=== PATIENT | female | born 1950 | race Caucasian/White ===

== ENCOUNTER 2017-05-01 11:01 | Outpatient (CLI) | payer MEDICARE, OTHER ==
--- NOTE | 2017-05-05 15:25 | Mammography Report ---
DIGITAL SCREENING MAMMOGRAM: 05/01/2017 CLINICAL INDICATION: A 66-year-old with history of benign biopsy, for screening. COMPARISON: Films from [place], [place] dated 01/07/2014, 09/16/2012, 10/18/2011, 01/04/2011. TECHNIQUE: Routine CC and MLO projections were obtained of the breasts. FINDINGS: Scattered fibroglandular tissue is present within the breasts. There are no dominant chuck s, suspicious microcalcifications, or secondary signs of malignancy. In comparison to the previous st udies, there are no significant changes. ASSESSMENT: NO MAMMOGRAPHIC EVIDENCE OF MALIGNANCY. NO SIGNIFICANT INTERVAL CHANGES. RECOMMENDATION: Screening mammography is recommended annually. BIRADS category 1 - negative. STANDARD QUALIFYING STATEMENTS 1. This examination was reviewed with the aid of Computed-Aided Detection (CAD). 2. A negative or benign imaging report should not delay biopsy if clinically suspicious findings are present. Consider surgical consultation if warranted. More than 5% of cancers are not identified by i maging. 3. Dense breasts may obscure an underlying neoplasm. JOB #: [id number] EXT JOB #:[id number]
== END 2017-05-01 11:02 | disposition home or self-care (01) ==
LOC: DI.N 11:01
PROVIDERS: ATTEND Internal Medicine
DX: Z12.31 Encounter for screening mammogram for malignant neoplasm of breast (principal)
CPT/HCPCS: 77067

== ENCOUNTER 2018-11-19 13:56 | Outpatient (CLI) | payer MEDICARE, OTHER ==
--- NOTE | 2018-11-20 14:28 | XRAY Report ---
Reason: RED SWOLLEN MCP JOINT ATTN TO THUMB Procedure Date: 11/19/2018 Accession Number: [id number] / [id number] Procedure: XRN - Hand 3 View BILAT CPT Code: FULL RESULT: EXAM: BILATERAL HAND RADIOGRAPHY EXAM DATE: 11/19/2018 02:17 PM. CLINICAL HISTORY: RED SWOLLEN MCP JOINT ATTN TO THUMB. Pain. COMPARISON: None. TECHNIQUE: Each hand, 3 views. FINDINGS: Bones: No definite fracture or other bone lesion. Joints: Severe degenerative changes in the first CMC joints, right slightly worse than left, with moderate subluxation. Minimal degenerative changes distally. Unremarkable MCP joints. No erosions. Soft Tissues: Soft tissue swelling. IMPRESSION: Severe first CMC joint degenerative disease. RADIA
== END 2018-11-19 13:57 | disposition home or self-care (01) ==
LOC: DI.N 13:56
PROVIDERS: ATTEND Internal Medicine
DX: M18.0 Bilateral primary osteoarthritis of first carpometacarpal joints (principal)

== ENCOUNTER 2019-04-26 10:48 | Outpatient (CLI) | payer MEDICARE, OTHER | END 2019-04-26 10:49 | disposition EMS.NT | LOC: EMS 10:48 | PROVIDERS: ATTEND Surgery | DX: R04.0 Epistaxis (principal) ==

== ENCOUNTER 2019-05-17 23:13 | Outpatient (CLI) | payer MEDICARE, OTHER | END 2019-05-17 23:14 | disposition critical access hospital (66) | LOC: EMS 23:13 | PROVIDERS: ATTEND Surgery | DX: R04.0 Epistaxis (principal) | CPT/HCPCS: A0425; A0429 ==

== ENCOUNTER 2019-05-17 23:31 | Emergency (ER) | payer MEDICARE, OTHER ==
--- NOTE | 2019-05-18 00:11 | ED Physician Documentation ---
PD MYCHAL GARCIA - Stated complaint Stated Complaint: Epistaxis - Chief complaint Chief Complaint: General - History obtained from History obtained from: Patient - History of Present Illness Timing - onset: Today Timing - duration: Hours (2) Timing - details: Abrupt onset Location: Nose Associated symptoms: No: Congestion, Rhinorrhea Recently seen: Not recently seen - Additional information Additional information: Is a 68-year-old woman who presents with complaints of a nosebleed in her left nostril that did not stop after applying pressure and even having the ambulance come and applied pressure. She had her first nosebleed ever from the same nostril 2 or 3 weeks ago but she was able to get it stopped and did not have to come in. She denies any stuffy nose and has not been using sprays nasal sprays. There is been no trauma. She is not on a blood thinner. Review of Systems Constitutional: denies: Fever Nose: reports: Epistaxis. denies: Congestion Immunocompromised: reports: Other (She is not on blood thinners) PD PAST MEDICAL HISTORY - Past Medical History Past Medical History: Yes Cardiovascular: Hypertension, [place] Respiratory: None Endocrine/Autoimmune: None GI: Ulcerative colitis FITTER MECHANIC: None Musculoskeletal: Fibromyalgia Derm: None - Past Surgical History /FITTER MECHANIC: Hysterectomy - Present Medications Home Medications: Ambulatory Orders Medication Instructions Recorded Confirmed Acetaminophen [Tylenol Extra 1,000 mg PO DAILY PM 05/18/19 05/18/19 Strength] Budesonide [Budesonide EC] 3 mg PO DAILY 05/18/19 05/18/19 Nortriptyline [Pamelor] 25 mg PO HS 05/18/19 05/18/19 RX: Amoxicillin 250 mg PO TID 10 Days #1 bottle 05/18/19 RX: Amoxicillin 250 mg PO TID 5 Days #1 bottle 05/18/19 RX: Aspirin 325 mg PO DAILY PM 05/18/19 05/18/19 RX: Ibuprofen 800 mg PO DAILY 05/18/19 05/18/19 RX: Metoprolol Succinate 50 mg PO DAILY PM 05/18/19 05/18/19 RX: Sertraline HCl 100 mg PO DAILY PM 05/18/19 05/18/19 RX: hydroCHLOROthiazide 25 mg PO DAILY 05/18/19 05/18/19 [Hydrochlorothiazide] - Allergies Allergies/Adverse Reactions: Allergies Allergy/AdvReac Type Severity Reaction Status Date / Time sumatriptan [From Imitrex] Allergy Severe Unknown Verified 05/17/19 23:40 codeine Allergy Itching Verified 05/17/19 23:40 erythromycin base Allergy Nausea Verified 05/17/19 23:40 morphine Allergy Itching Verified 05/17/19 23:40 - Social History Does the pt smoke?: No Smoking Status: Former smoker Does the pt drink ETOH?: Yes ETOH Use: Wine Does the pt have substance abuse?: No - Immunizations Immunizations are current?: No - POLST Patient has POLST: No PD ED PE NORMAL - Vitals Vital signs reviewed: Yes - General General: Alert and oriented X 3, No acute distress, Well developed/nourished - HEENT HEENT: Atraumatic, PERRL, Moist mucous membranes, Other (There is no active bleeding. I cannot identify any source of the bleeding on the anterior septum. There is some dried blood in her posterior pharynx.) - Respiratory Respiratory: No respiratory distress Results - Vitals Vitals: Vital Signs - 24 hr 05/17/19 05/17/19 05/18/19 23:40 23:48 01:05 Temperature 36.2 C L Heart Rate 85 79 79 Respiratory 20 18 16 Rate Blood Pressure 159/83 H 144/87 H 146/78 H O2 Saturation 97 97 97 Oxygen O2 Source Room air Procedures - Epistaxis Site: Right Treatment: Other (Rapid Rhino) Other: Pt tolerated well, Antibiotics prescribed PD MEDICAL DECISION MAKING - ED course ED course: I could not identify a definitive source of the bleeding and elected to put a rapid Rhino and since this is her set get an episode of epistaxis in the past couple of weeks. She is referred back to her primary care provider for removal of the packing in 2 days or return to the emergency department if needed. Consider referral to ENT. Departure - Departure Disposition: 01 Home, Self Care Clinical Impression: Epistaxis Condition: Good Instructions: ED Nasal Packing Anterior Removable Prescriptions: RX: Amoxicillin 250 mg PO TID 10 Days #1 bottle RX: Amoxicillin 250 mg PO TID 5 Days #1 bottle Comments: Take the amoxicillin as prescribed while the packing is in place. Follow-up with your primary care provider or ENT to remove the packing. Return if you have bleeding down the back of your throat or blood out of the nostril with packing in place. Tylenol if needed for pain. Discharge Date/Time: 05/18/19 01:21
[2019-05-18] MEDS ORDERED: AMOXICILLIN 250 MG CAPSULE PO STA (00:51)
[2019-05-18 01:06] VITALS: BP 146/78
== END 2019-05-18 01:21 | disposition home or self-care (01) ==
LOC: EDUNIT# → EDBD → ED 23:31
DX: R04.0 Epistaxis (principal); I10 Essential (primary) hypertension; Z79.82 Long term (current) use of aspirin; Z87.891 Personal history of nicotine dependence
CPT/HCPCS: 30901; 99283; A9270

== ENCOUNTER 2020-06-13 13:26 | Outpatient (CLI) | payer MEDICARE, OTHER ==
--- NOTE | 2020-06-14 10:01 | Mammography Report ---
BILATERAL DIGITAL SCREENING MAMMOGRAM 3D/2D: 06/13/2020 CLINICAL: Routine screening. Comparison is made to exams dated: 05/01/2017 mammogram - [facility] and 01/07/2014 m ammogram - [place]. There are scattered fibroglandular elements in both breasts. There are grouped calcifications in the left breast at 12 o'clock middle depth. No other significant masses, calcifications, or other findings are seen in either breast. IMPRESSION: INCOMPLETE: NEEDS ADDITIONAL IMAGING EVALUATION The grouped calcifications in the left breast are indeterminate. A spot compression view is recommen ded. This exam was interpreted at Station ID: [id number]. NOTE: For mammograms, a report in lay terms will be sent to the patient. Approximately 15% of breast malignancies will not be visualized mammographically. In the management of a palpable breast mass, a negative mammogram must not discourage biopsy of a clinically suspicious lesion. Electronically Signed By: Mimi Fuller M.D. lk/:06/13/2020 15:12:03 ACR BI-RADS Category 0: Incomplete 3340F PARENCHYMAL PATTERN: (A) - The breast(s) demonstrate(s) scattered fibroglandular densities. BI-RADS CATEGORY: (0) - 0 RECOMMENDATION: (ADDMAM) - Recommend additional mammographic views. [id number] Immediate follow-up LATERALITY: (B)
== END 2020-06-13 13:27 | disposition home or self-care (01) ==
LOC: DI.N 13:26
PROVIDERS: ATTEND Internal Medicine
DX: Z12.31 Encounter for screening mammogram for malignant neoplasm of breast (principal); R92.8 Other abnormal and inconclusive findings on diagnostic imaging of breast
CPT/HCPCS: 77063; 77067

== ENCOUNTER 2020-06-15 14:40 | Outpatient (CLI) | payer MEDICARE, OTHER ==
--- NOTE | 2020-06-15 16:53 | DEXA Report ---
PROCEDURE: Dexa Spine and/or Hip INDICATIONS: POST MENOPAUSAL TECHNIQUE: Dual energy x-ray absorptiometry (DXA) was performed on a [employer] System. Regions measur ed are the AP Spine, femoral neck, and if needed forearm. COMPARISON: None. FINDINGS: Lumbar Spine: Bone Mineral Density 1.289 g/cm/cm,T score 0.9, normal Left Hip: Bone Mineral Density 1.064 g/cm/cm,T score 0.4, normal Left Femoral Neck: Bone Mineral Density 0.938 g/cm/cm, T score -0.7, normal (T score greater or equal to -1.0: NORMAL) (T score from -1.1 to -2.4: OSTEOPENIA) (T score less than or equal to -2.5 to: OSTEOPOROSIS) Impression: Normal bone density. Patients with diagnosis of osteoporosis or osteopenia should have regular bone mineral density assess ment. For those eligible for Medicare, routine testing is allowed once every 2 years. Testing frequ ency can be increased for patients who have rapidly progressing disease or for those who are receivin g medical therapy to restore bone mass. Reviewed by: Cristel Butcher MD, PhD on 06/15/2020 4:52 PM PDT Approved by: Cristel Butcher MD, PhD on 06/15/2020 4:52 PM PDT Station ID: [id number]
== END 2020-06-15 14:41 | disposition home or self-care (01) ==
LOC: DI 14:40
PROVIDERS: ATTEND Internal Medicine
DX: Z13.820 Encounter for screening for osteoporosis (principal); Z78.0 Asymptomatic menopausal state; N95.8 Other specified menopausal and perimenopausal disorders
CPT/HCPCS: 77080

== ENCOUNTER 2020-07-04 14:11 | Outpatient (CLI) | payer MEDICARE, OTHER ==
--- NOTE | 2020-07-05 14:57 | Mammography Report ---
UNILATERAL LEFT DIGITAL DIAGNOSTIC MAMMOGRAM 3D/2D: 07/04/2020 CLINICAL: Patient returns for magnifcation views of microcalcifications in the left breast. Comparison is made to exams dated: 05/01/2017 mammogram, 06/13/2020 mammogram - [facility], and 01/07/2014 mammogram - [place]. There are scattered fibroglandular elements in left breast. There is a new 3 mm area of grouped fine heterogeneous calcifications in the left breast at 12 o'cloc k middle depth 7.5 cm from the nipple. These are seen in additional views. No other significant masses or calcifications are seen in the breast. IMPRESSION: SUSPICIOUS OF MALIGNANCY The new 3 mm area of grouped fine heterogeneous calcifications in the left breast are at a low suspic ion for malignancy. A stereotactic biopsy is recommended. Findings and recommendations were discuss ed with the patient by the onsite radiologist, Dr. García, at the time of the exam. This exam was interpreted at Station ID: [id number]. NOTE: For mammograms, a report in lay terms will be sent to the patient. Approximately 15% of breast malignancies will not be visualized mammographically. In the management of a palpable breast mass, a negative mammogram must not discourage biopsy of a clinically suspicious lesion. Electronically Signed By: Sukhi saunders/melba:07/04/2020 16:46:26 ACR BI-RADS Category 4a: Suspicious abnormality - low suspicion for malignancy 3344F PARENCHYMAL PATTERN: (A) - The breast(s) demonstrate(s) scattered fibroglandular densities. BI-RADS CATEGORY: (4a) - Low Susp None [id number] Immediate follow-up LATERALITY: ()
== END 2020-07-04 14:12 | disposition home or self-care (01) ==
LOC: DI 14:11
PROVIDERS: ATTEND Internal Medicine
DX: R92.8 Other abnormal and inconclusive findings on diagnostic imaging of breast (principal)

== ENCOUNTER 2020-07-19 10:36 | Outpatient (CLI) | payer MEDICARE, OTHER ==
[~2020-07-19 10:36] MED LIST: BUFFERED LIDOCAINE 10 ML SYRINGE ONE; LIDOCAINE 1%-EPI 1:100000 20 ML MDV ONE
[2020-07-19] MEDS ORDERED: LIDOCAINE 1%-EPI 1:100000 20 ML MDV SUBQ ONE (12:07)
[2020-07-19] MEDS ORDERED: BUFFERED LIDOCAINE 10 ML SYRINGE IU ONE (12:08)
--- NOTE | 2020-07-24 07:06 | Mammography Report ---
DIGITAL TOMOGRAPHIC MAMMOGRAPHY GUIDED STEREOTACTIC GUIDED BIOPSY LEFT BREAST WITH MARKING DEVICE INS ERTED AND POST MAMMOGRAPHIC IMAGING AND RADIOGRAPHIC SPECIMEN IMAGIN07/19/2020 CLINICAL: Diffuse right breast pain. Correlation is made to exams dated: 07/04/2020 mammogram, 06/13/2020 mammogram, 05/01/2017 mammogram - [facility], 01/07/2014 mammogram, 11/17/2011 ultrasound, and 11/17/2011 mammogram [place]. A stereotactic guided biopsy was performed for the 3 mm area of grouped and linear fine calcification s located in the left breast at 12 o'clock middle depth 7.5 cm from the nipple. This was described o n the previous mammography report. The skin was prepped in the usual manner. Local anesthetic was a dministered to the access site. A small incision was made in the breast. The abnormality was approa ched from the craniocaudal aspect using an upright digital tomographic mammography unit. A 9 gauge b iopsy needle was placed adjacent to the abnormality under computer guidance and confirmatory stereota ctic mammography images were obtained to document needle placement. Once the needle was documented t o be in the correct location, a specimen was obtained using an automated biopsy gun. A clip was inse rted into the biopsy cavity. A skin closure strip and a sterile dressing were applied to the access site. Post procedure mammographic imaging demonstrates the location device at the targeted area. Th e specimen was sent to the laboratory for pathological analysis. IMPRESSION: STEREOTACTIC GUIDED BIOPSY BENIGN Stereotactic guided biopsy of the 3 mm area of grouped and linear fine calcifications in the left jacob ast at 12 o'clock middle depth 7.5 cm from the nipple was successful. The imaged specimen includes t he calcifications. Pathology indicates benign fatty breast tissue with micro-calcifications present. Pathology results are concordant with imaging findings. Return to annual mammogram screening schedule is recommended. This exam was interpreted at Station ID: [id number]. Skip Can M.D. ,aty/:07/21/2020 18:22:31 BI-RADS CATEGORY: () - Mammogram [id number] return to screening LATERALITY: (B)
== END 2020-07-19 10:37 | disposition home or self-care (01) ==
LOC: DI 10:36
PROVIDERS: ATTEND Internal Medicine
DX: R92.8 Other abnormal and inconclusive findings on diagnostic imaging of breast (principal); R92.0 Mammographic microcalcification found on diagnostic imaging of breast
CPT/HCPCS: 19081

== ENCOUNTER 2021-01-12 12:25 | Outpatient (CLI) | payer MEDICARE, OTHER ==
--- NOTE | 2021-01-12 12:52 | XRAY Report ---
PROCEDURE: Chest 2 View X-Ray INDICATIONS: COUGH TECHNIQUE: 2 view(s) of the chest. COMPARISON: None. FINDINGS: Surgical changes and devices: None. Lungs and pleura: No pleural effusions or pneumothorax. Lungs are clear. Mediastinum: Mediastinal contours are normal. Heart size is normal. Bones and chest wall: No suspicious bony abnormalities. Soft tissues appear unremarkable. IMPRESSION: No acute cardiopulmonary disease process. Reviewed by: Cristel Butcher MD, PhD on 01/12/2021 12:51 PM PDT Approved by: Cristel Butcher MD, PhD on 01/12/2021 12:51 PM PDT Station ID: [id number]
[2021-01-12 13:05] LABS: BASOPHILS # (AUTO) 0.1 10^3/uL (0.0-0.1); BASOPHILS % (AUTO) 0.7 %; EOSINOPHILS # (AUTO) 0.3 10^3/uL (0.0-0.7); EOSINOPHILS % (AUTO) 2.1 %; HCT - HEMATOCRIT 39.8 % (37.0-47.0); HGB - HEMOGLOBIN 13.2 g/dL (12.0-16.0); LYMPHOCYTES # (AUTO) 1.2 10^3/uL (1.5-3.5); LYMPHOCYTES % (AUTO) 9.1 %; MEAN CORPUSCULAR HEMOGLOBIN 31.2 pg (27.0-31.0); MEAN CORPUSCULAR HGB CONC 33.2 g/dL (32.0-36.0); MEAN CORPUSCULAR VOLUME 94.1 fL (81.0-99.0); MEAN PLATELET VOLUME 9.1 fL (7.9-10.8); MONOCYTES # (AUTO) 0.6 10^3/uL (0.0-1.0); MONOCYTES % (AUTO) 4.5 %; NEUTROPHILS # (AUTO) 10.7 10^3/uL (1.5-6.6); NEUTROPHILS % (AUTO) 82.1 %; PLT - PLATELET COUNT 229 10^3/uL (130-450); RED BLOOD COUNT 4.23 10^6/uL (4.20-5.40); RED CELL DISTRIBUTION WIDTH 13.4 % (12.0-15.0); WHITE BLOOD COUNT 13.1 x10^3/uL (4.8-10.8)
== END 2021-01-12 12:26 | disposition home or self-care (01) ==
LOC: DI 12:25
PROVIDERS: ATTEND Internal Medicine
DX: R05 Cough (principal); R06.00 Dyspnea, unspecified; I42.9 Cardiomyopathy, unspecified
CPT/HCPCS: 36415; 83880; 85025

== ENCOUNTER 2021-01-12 12:36 | Outpatient (CLI) | payer MEDICARE, OTHER | END 2021-01-12 12:37 | disposition home or self-care (01) | LOC: LAB 12:36 | PROVIDERS: ATTEND Internal Medicine | DX: Z53.9 Procedure and treatment not carried out, unspecified reason (principal); I42.9 Cardiomyopathy, unspecified; R06.00 Dyspnea, unspecified ==

== ENCOUNTER 2021-01-19 15:31 | Outpatient (CLI) | payer MEDICARE, OTHER ==
[2021-01-19] MEDS ORDERED: IOPAMIDOL-300 100 ML VIAL ONE (16:01)
[2021-01-19 16:17] LABS: CREATININE 0.8 mg/dL (0.4-1.0)
[2021-01-19] MEDS ORDERED: IOPAMIDOL-300 100 ML VIAL IVP ONE (17:34)
--- NOTE | 2021-01-19 18:05 | CT Report ---
PROCEDURE: ANGIO CHEST W/WO INDICATIONS: DYSPNEA, HYPOXIA CONTRAST: IV CONTRAST: Isovue 300 ml: 80 PO CONTRAST: *NO PO CONTRAST TECHNIQUE: After the administration of intravenous contrast, 2 mm thick sections acquired from the pulmonary api miguel to the posterior costophrenic angles. 3-dimensional maximum intensity projection (MIP) coronal a nd sagittal reformats were then acquired through the thorax. For radiation dose reduction, the follow ing was used: automated exposure control, adjustment of mA and/or kV according to patient size. COMPARISON: CXR 01/12/2021. FINDINGS: Image quality: Fair. Respiratory motion. Pulmonary arteries: Pulmonary arteries are normal in size, and demonstrate no intraluminal filling d efects to suggest central pulmonary embolism. Lungs and pleura: Diffuse airspace opacity bilaterally, moderate to severe. No pleural effusions or p neumothorax. Central and peripheral airways are patent. Mediastinum: Heart size is normal, without pericardial effusion. Mildly enlarged right hilar lymph node measuring 1.1 cm, (5/55). Mildly prominent prevascular node with a short axis diameter of 0.7 cm , (5/50). Thoracic aorta is normal in caliber and enhancement. Left vertebral artery originates off t he aortic arch, variant. Esophagus is normal in caliber, without hiatal hernia. Bones and chest wall: No suspicious bony lesions. Ribs and thoracic spine appear intact throughout. The thyroid is normal. No axillary or supraclavicular adenopathy. Left breast clips. Abdomen: Suspect cholelithiasis. Visualized upper abdominal solid organs appear normal in the early a rterial phase of enhancement. IMPRESSION: 1. No central pulmonary embolism. 2. Diffuse airspace opacity bilaterally, moderate to severe. This could be due to infectious/inflamma tory etiology. Pulmonary edema could have a similar appearance. 3. Mildly enlarged right hilar lymph node. Mildly prominent prevascular lymph node. These nodes could be reactive. -Follow-up CT chest with IV contrast should be considered. Results were communicated to Dr. Nessa Jean at 01/19/2021 6:02 PM PDT. Reviewed by: Santhosh Bautista MD on 01/19/2021 6:03 PM PDT Approved by: Santhosh Bautista MD on 01/19/2021 6:03 PM PDT Station ID: [id number]
== END 2021-01-19 15:32 | disposition home or self-care (01) ==
LOC: DI 15:31
PROVIDERS: ATTEND Internal Medicine
DX: R91.8 Other nonspecific abnormal finding of lung field (principal); R59.0 Localized enlarged lymph nodes; Z79.899 Other long term (current) drug therapy
CPT/HCPCS: 36415; 71275; 82565; Q9967

== ENCOUNTER 2021-03-13 10:23 | Outpatient (CLI) | payer MEDICARE, OTHER | END 2021-03-13 10:24 | disposition home or self-care (01) | LOC: DI 10:23 | PROVIDERS: ATTEND Internal Medicine | DX: I11.0 Hypertensive heart disease with heart failure (principal); I50.9 Heart failure, unspecified; R06.00 Dyspnea, unspecified | CPT/HCPCS: 93306 ==

== ENCOUNTER 2021-11-15 12:35 | Outpatient (CLI) | payer MEDICARE ==
[2021-11-15 13:03] LABS: CREATININE 0.7 mg/dL (0.4-1.0)
[2021-11-15] MEDS ORDERED: IOVERSOL 320 100 ML VIAL IVP ONE ×2 (13:28→13:45)
--- NOTE | 2021-11-15 14:42 | CT Report ---
PROCEDURE: CHEST W INDICATIONS: Hilar Lymphadenopathy TECHNIQUE: After the administration of intravenous contrast, 1 mm axial images were acquired from the pulmonary apices through the posterior costophrenic angles. Axial 5 mm soft tissue kernel reconstructions were performed as well as 8 mm axial MIP and coronal and sagittal 5 mm reformations. For radiation dose reduction, the following was used: automated exposure control, adjustment of mA and/or kV according to patient size. COMPARISON: None. FINDINGS: Image quality: Excellent. Lungs and pleura: A few pulmonary nodules. For example: -Right upper lobe measuring mean diameter 0.5 cm, (4/117). -Left lower lobe measuring 0.3 cm, (4/145). -Left lower lobe measuring 0.2 cm, (4/174). -Left lower lobe 0.3 cm, (4/187). The majority of the airspace opacity is resolved. No pleural effusions or pneumothorax. Central and peripheral airways are patent and normal in caliber. Mediastinum: Heart size is normal. No pericardial effusion. No mediastinal or hilar adenopathy by size criteria. The previously seen right hilar node now measures 0.8 cm, previously 1.1 cm. Likely re active etiology. Thoracic aorta and central pulmonary arteries are normal in size. Esophagus is norm al in caliber. No hiatal hernia. Bones and chest wall: No suspicious bony lesions. No vertebral body compression fractures. No axil lalit or supraclavicular adenopathy by size criteria. Right thyroid nodule measuring approximately 1 c m, (3/9). Abdomen: Visualized upper abdominal solid organs appear normal. Upper abdominal bowel loops are nor mal in caliber. Hepatic steatosis. IMPRESSION: 1. Previously seen airspace opacity is nearly resolved. 2. Right upper lobe pulmonary nodule measuring 0.5 cm. 3. Right hilar node is no longer enlarged. Reviewed by: Santhosh Bautista MD on 11/15/2021 2:40 PM PST Approved by: Santhosh Bautista MD on 11/15/2021 2:40 PM PST Station ID: [id number]
== END 2021-11-15 12:36 | disposition home or self-care (01) ==
LOC: DI 12:35
PROVIDERS: ATTEND Internal Medicine
DX: Z79.899 Other long term (current) drug therapy (principal); R91.1 Solitary pulmonary nodule
CPT/HCPCS: 36415; 71260; 82565; Q9967

== ENCOUNTER 2021-11-28 14:23 | Outpatient (CLI) | payer MEDICARE ==
--- NOTE | 2021-11-28 18:44 | MRI Report ---
PROCEDURE: Lumbar Spine W/O INDICATIONS: LOW BACK PAIN, SCIATICA TECHNIQUE: Noncontrast sagittal T1 spin echo and T2 fast echo, sagittal STIR, axial T1 and T2 fast spin echo thr ough the lumbar spine. In cases with scoliosis, additional coronal T2 fast spin echo may be performe d. COMPARISON: None. FINDINGS: Image quality: Excellent. Alignment and Curvature: Convex right thoracolumbar scoliosis noted. Bone Marrow: Multilevel degenerative endplate changes noted. Spinal Cord: Conus medullaris terminates at the L1 level. Visualized cord demonstrates normal signa l and size. Paraspinous Soft Tissues: No paravertebral masses. T12-L1: Normal in appearance. L1-L2: Disc space narrowing and circumferential disc bulge with hypertrophic facet joints present. Mild central stenosis and moderate left foraminal stenosis. No right foraminal stenosis. L2-L3: Mild disc space narrowing with circumferential disc bulge combines with hypertrophic facet joints and dorsal epidural fat result in severe central stenosis and severe left foraminal stenosis. Mild right foraminal stenosis. L3-L4: Disc space narrowing present with mild circumferential disc bulge. No central stenosis. Mode rate left and no right foraminal stenosis. L4-L5: Disc space narrowing and circumferential disc bulge and hypertrophic facet joints result in effacement of both lateral recess and moderate disc central stenosis. There is severe right and moder ate left foraminal stenosis L5-S1: Circumferential disc bulge and hypertrophic facet joints results in moderate central stenosi s. Severe right and left foraminal stenosis present. Incidental perineural cysts noted in the sacrum on the right IMPRESSION: 1. Mild degenerative disc disease and arthropathy combines with dorsal epidural fat result in severe central stenosis at L2-3. Additional varying degrees of stenosis including severe foraminal stenosis noted at L4-5 and L5-S1 Reviewed by: Michael Dumont MD on 11/28/2021 5:42 PM AKST Approved by: Michael Dumont MD on 11/28/2021 5:42 PM AKST Station ID: [id number]
== END 2021-11-28 14:24 | disposition home or self-care (01) ==
LOC: DI 14:23
PROVIDERS: ATTEND Internal Medicine
DX: M51.16 Intervertebral disc disorders with radiculopathy, lumbar region (principal); M48.061 Spinal stenosis, lumbar region without neurogenic claudication; M51.17 Intervertebral disc disorders with radiculopathy, lumbosacral region; M48.07 Spinal stenosis, lumbosacral region

== ENCOUNTER 2021-12-18 11:26 | Outpatient (CLI) | payer MEDICARE ==
--- NOTE | 2021-12-19 08:15 | Mammography Report ---
BILATERAL DIGITAL SCREENING MAMMOGRAM 3D/2D: 12/18/2021 CLINICAL: Routine screening. Comparison is made to exams dated: 07/19/2020 stereotactic biopsy, 07/04/2020 mammogram, 06/13/2020 [facility] mogram, 05/01/2017 mammogram - [facility], 01/07/2014 mammogram, and 11/17/2011 ultraso und - [place]. There are scattered fibroglandular elements in both breasts. No significant masses, calcifications, or other findings are seen in either breast. There has been no significant interval change. IMPRESSION: NEGATIVE There is no mammographic evidence of malignancy. A 1 year screening mammogram is recommended. This exam was interpreted at Station ID: [id number]. NOTE: For mammograms, a report in lay terms will be sent to the patient. Approximately 15% of breast malignancies will not be visualized mammographically. In the management of a palpable breast mass, a negative mammogram must not discourage biopsy of a clinically suspicious lesion. Electronically Signed By: Huang Charles M.D. ddp/penrad:12/18/2021 15:56:11 ACR BI-RADS Category 1: Negative 3341F PARENCHYMAL PATTERN: (A) - The breast(s) demonstrate(s) scattered fibroglandular densities. BI-RADS CATEGORY: (1) - 1 RECOMMENDATION: (ANNUAL) - Recommend routine annual screening mammography. [id number] 1 year screening LATERALITY: (B)
== END 2021-12-18 11:27 | disposition home or self-care (01) ==
LOC: DI.N 11:26
PROVIDERS: ATTEND Internal Medicine
DX: Z12.31 Encounter for screening mammogram for malignant neoplasm of breast (principal)

== ENCOUNTER 2022-11-28 14:32 | Outpatient (CLI) | payer MEDICARE ==
--- NOTE | 2022-11-28 16:20 | Ultrasound Report ---
PROCEDURE: Duplex Ext Veins Right INDICATIONS: SWELLING OF LOWER LEG TECHNIQUE: Real-time imaging, as well as color and pulse Doppler interrogation, were performed of the lower extr emity deep veins from the inguinal ligament to the popliteal fossa. COMPARISON: None. FINDINGS: The deep veins are normally compressible, and free of intraluminal thrombus. Color and pu lse Doppler demonstrate normal phasic intraluminal flow. There is normal augmentation response to di stal compression maneuver. IMPRESSION: No evidence of DVT in the right lower extremity. Reviewed by: Kayla Turcios MD on 11/28/2022 4:19 PM PST Approved by: Kayla Turcios MD on 11/28/2022 4:19 PM PST Station ID: [id number]
== END 2022-11-28 14:33 | disposition home or self-care (01) ==
LOC: DI 14:32
PROVIDERS: ATTEND Internal Medicine
DX: R22.41 Localized swelling, mass and lump, right lower limb (principal)

== ENCOUNTER 2023-02-04 12:56 | Outpatient (CLI) | payer MEDICARE ==
--- NOTE | 2023-02-05 12:13 | Mammography Report ---
BILATERAL DIGITAL SCREENING MAMMOGRAM 3D/2D: 02/04/2023 CLINICAL: Routine screening. Comparison is made to exams dated: 12/18/2021 mammogram, 07/19/2020 stereotactic biopsy, 07/04/2020 ma mmogram, 06/13/2020 mammogram, 05/01/2017 mammogram - [facility], and 01/07/2014 mammogr am - [place]. Both breasts are almost entirely fatty (category a/<25% glandular tissue). There is a biopsy clip in the left breast. No significant masses, calcifications, or other findings are seen in either breast. There has been no significant interval change. IMPRESSION: NEGATIVE There is no mammographic evidence of malignancy. A 1 year screening mammogram is recommended. Based on the Tyrer Cuzick model (a risk assessment model) the patients lifetime risk is 2.4% and her 10 year risk is 2.0%. According to the ACR, ACS, and NCCN guidelines, an annual breast MRI exam ajit g with mammogram is recommended if the patients lifetime risk is 20% or greater. This exam was interpreted at Station ID: [id number]. NOTE: For mammograms, a report in lay terms will be sent to the patient. Approximately 15% of breast malignancies will not be visualized mammographically. In the management of a palpable breast mass, a negative mammogram must not discourage biopsy of a clinically suspicious lesion. Electronically Signed By: Kayla hathaway/melba:02/04/2023 17:21:45 letter sent: No_Letter ACR BI-RADS Category 1: Negative 3341F PARENCHYMAL PATTERN: (F) - The breast(s) demonstrate(s) diffuse fatty replacement. BI-RADS CATEGORY: (1) - 1 Mammogram [id number] 1 year screening LATERALITY: (B)
== END 2023-02-04 12:57 | disposition home or self-care (01) ==
LOC: DI.N 12:56
PROVIDERS: ATTEND Internal Medicine
DX: Z12.31 Encounter for screening mammogram for malignant neoplasm of breast (principal)

== ENCOUNTER 2023-11-10 12:52 | Outpatient (CLI) | payer MEDICARE ==
--- NOTE | 2023-11-10 19:47 | Ultrasound Report ---
PROCEDURE: Extremity Soft Tissue Limited INDICATIONS: SWELLING LEFT THIGH TECHNIQUE: Real-time scanning was performed of the left thigh, with image documentation. COMPARISON: None. FINDINGS: Focused ultrasound examination of left lateral thigh at the site of swelling shows a 5.7 x 1.3 x 2.2 cm heterogeneously hypoechoic and solid appearing structure with internal anechoic areas a nd showed no internal vascularity. There is also a 1.7 x 0.7 x 2 cm solid appearing structure within subcutaneous soft tissue of medial left thigh and is isoechoic to adjacent subcutaneous fat. No internal vascularity is seen. IMPRESSION: 1. Mixed solid and cystic structure in deep soft tissue of lateral left thigh measures 5.7 x 1.3 x 2. 2 cm in size and show no internal vascularity. Finding is suggestive of soft tissue neoplasm of indet erminant etiology. Consider biopsy of the lesion for more definitive diagnosis. 2. 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 Reviewed by: Raymond Mcgarry MD on 11/10/2023 7:45 PM PST Approved by: Raymond Mcgarry MD on 11/10/2023 7:45 PM PST Station ID: [id number]
== END 2023-11-10 12:53 | disposition home or self-care (01) ==
LOC: DI 12:52
PROVIDERS: ATTEND Internal Medicine
DX: R93.6 Abnormal findings on diagnostic imaging of limbs (principal); R93.89 Abnormal findings on diagnostic imaging of other specified body structures

== ENCOUNTER 2024-01-01 11:59 | Outpatient (CLI) | payer MEDICARE ==
[2024-01-01 12:30] LABS: CREATININE 0.7 mg/dL (0.6-1.3)
[2024-01-01] MEDS ORDERED: GADOTERATE MEGLUMINE 7.5 MMOL/15 ML VIAL ONE (12:38)
[2024-01-01] MEDS: GADOTERATE MEGLUMINE 7.5 MMOL/15 ML VIAL IVP ONE (13:58)
--- NOTE | 2024-01-01 15:54 | MRI Report ---
PROCEDURE: Femur/Thigh LT W/WO INDICATIONS: THIGH LIPOMA CONTRAST: CLARISCAN 14.2 TECHNIQUE: Noncontrast coronal T1 spin echo and STIR, sagittal T1 spin echo with fat saturation and STIR, axial T1 spin echo and T2 fast spin echo with fat saturation. After the administration of contrast, axial/ sagittal/coronal T1 spin echo with fat saturation through the left thigh. COMPARISON: Ultrasound of left thigh dated 11/10/2023. FINDINGS: Image quality: Excellent. Bones: There is no marrow edema. No fracture or dislocation. Moderate left hip joint osteoarthritic c hanges are seen. No suspicious intraosseous lesion. No area of abnormal intraosseous enhancement. Soft tissues: There is large lobulated fairly homogeneously T1 hypointense and T2 hyperintense struct ure involving the deep left anterolateral proximal to mid thigh deep soft tissue with significant mas s effect on adjacent quadriceps muscles and measures up to 8.2 x 2.5 x 16.3 cm in size. Thin internal septation is seen. This structure shows near complete suppression of signal is of fat suppressed seq uences and show no contrast enhancement. The scanned muscles demonstrate normal overall bulk and inte rnal signal IMPRESSION: 1. 8.2 x 2.5 x 15.3 cm lobulated and septated fat signal structure involving anterolateral proximal t o mid thigh deep soft tissue with significant mass effect on the adjacent anterolateral aspect of lef t thigh quadriceps muscles. No definite contrast enhancement is noted within this structure. 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 Liposarcoma cannot be entirely excluded. Clinical and imaging follow -up is recommended. 2. No enhancing soft tissue mass or drainable fluid collection. No left thigh muscle signal abnormali ties. 3. No fracture or dislocation. No suspicious intraosseous lesion or abnormal intraosseous enhancement . Left hip joint osteoarthritis. No evidence of avascular necrosis. Reviewed by: Raymond Mcgarry MD on 01/01/2024 3:53 PM PDT Approved by: Raymond Mcgarry MD on 01/01/2024 3:53 PM PDT Station ID: [id number]
== END 2024-01-01 12:00 | disposition home or self-care (01) ==
LOC: LAB 11:59
PROVIDERS: ATTEND Surgery
DX: D17.24 Benign lipomatous neoplasm of skin and subcutaneous tissue of left leg (principal)
CPT/HCPCS: 36415; 82565

== ENCOUNTER 2024-02-18 14:34 | Outpatient (CLI) | payer MEDICARE ==
--- NOTE | 2024-02-18 16:53 | CT Report ---
PROCEDURE: Chest WO INDICATIONS: CA STAGING TECHNIQUE: A CT scan of the chest was performed. Intravenous contrast media was not administered. Images were re corded and evaluated at appropriate window settings. Reformats: axial MIP of the chest, coronal and s agittal. For radiation dose reduction, the following was used: automated exposure control, adjustment of mA and/or kV according to patient size. COMPARISON: 11/15/2020 FINDINGS: Image quality: Diagnostic. Chest wall and lower neck: Hypodense right thyroid gland without significant change. Nodule is less w ell seen. No chest wall masses. No axillary or supraclavicular adenopathy by size. Lungs and pleura: Minor centrilobular emphysematous change and scarring at the right posterior lung b ase. -Slight increase in size of anterior right upper lobe solid nodule now with a mean diameter of 6.5 mm , 12/141, previously 5 mm. -Superior segment left lower lobe nodule is stable, 12/165. -3 mm left lower lobe solid nodule, 12/218, and juxtapleural nodule are stable. Central and peripheral airways are normal caliber without bronchial wall thickening or bronchiectasis . No pleural effusions. No pneumothorax. No acute airspace disease. Mediastinum: Heart size is normal. No pericardial effusion. Mild coronary artery calcification. No la rge vessel abnormality. No mediastinal adenopathy by size criteria. No anterior or posterior mediast inal mass. Normal esophagus without hiatal hernia Bones: No aggressive osseous abnormality. Upper Abdomen: Moderate hepatic steatosis. There is a stable faint subcapsular hyperdensity in segmen t 7 posteriorly. Visible portions of the upper abdomen are otherwise normal. IMPRESSION: There is been very slight interval increase in size of the solid anterior right upper lobe lung nodul e. If there is high risk of lung cancer, six-month follow-up chest CT is recommended. There is no mediastinal adenopathy. Left lung nodules are stable. Moderate hepatic steatosis is chronic. Reviewed by: Kayla Turcios MD on 02/18/2024 4:51 PM PDT Approved by: Kayla Turcios MD on 02/18/2024 4:51 PM PDT Station ID: [id number]
== END 2024-02-18 14:35 | disposition home or self-care (01) ==
LOC: DI 14:34
PROVIDERS: ATTEND Surgery
DX: R91.8 Other nonspecific abnormal finding of lung field (principal); K76.0 Fatty (change of) liver, not elsewhere classified